=== PATIENT | male | born 1995 | race Caucasian/White ===

== ENCOUNTER 2024-04-26 11:22 | Emergency (ER) | payer SELFPAY ==
[~2024-04-26] VITALS: Ht 170.2 cm; Wt 78.9 kg
[2024-04-26 11:31] VITALS: BP 138/92; PULSE 75; RESP 20; TEMP 98; O2SAT 100
[2024-04-26] MEDS ORDERED: LIDOCAINE 5% 1 EA PATCH TP ONE (12:30)
[2024-04-26] MEDS ORDERED: KETOROLAC 30 MG/ML VIAL ONE (12:30)
[2024-04-26] MEDS: KETOROLAC 30 MG/ML VIAL IM ONE (12:33)
[2024-04-26] MEDS: LIDOCAINE 5% 1 EA PATCH TP ONE (12:34)
[2024-04-26] MEDS ORDERED: LID5T TP (13:06)
[2024-04-26] MEDS ORDERED: NAPR-337 PO (13:06)
[2024-04-26 13:11] VITALS: BP 133/82; PULSE 66; RESP 16; TEMP 98; O2SAT 99
== END 2024-04-26 13:11 | disposition home or self-care (01) ==
LOC: MED 11:22
DX: S39.011A Strain of muscle, fascia and tendon of abdomen, initial encounter (principal); J45.909 Unspecified asthma, uncomplicated; Z79.899 Other long term (current) drug therapy; X58.XXXA Exposure to other specified factors, initial encounter; Y93.89 Activity, other specified; Y92.89 Other specified places as the place of occurrence of the external cause; Y99.8 Other external cause status
CPT/HCPCS: 96372; 99283; J1885